=== PATIENT | male | born 2000 | race Caucasian/White ===

== ENCOUNTER 2019-05-19 15:35 | Emergency (ER) | payer OTHER ==
[~2019-05-19] VITALS: Ht 180.3 cm; Wt 82.5 kg
--- NOTE | 2019-05-19 16:46 | REP ---
Clinical: Left Testicular pain. Technique: Genao scale and color Doppler evaluation using linear and curved array transducer with color Doppler evaluation. Findings: The testicles and epididymi are relatively normal in contour, size, echogenicity, vascularity and overall appearance. There is no evidence for intratesticular mass lesion, infectious/inflammatory process, with torsion. No obvious hydroceles or varicoceles are identified. Right testicle measures 4.7 x 2.2 x 3.0 cm. Left testicle measures 4.4 x 2.2 x 3.2 cm. Impression: Normal scrotal ultrasound. No evidence for testicular torsion or orchitis. Electronically Signed by Jeff March MD 05/19/2019 04:38 P
[2019-05-19 18:13] VITALS: BP 136/87
[2019-05-19 19:03] LABS: CHLAMYDIA DNA AMPLIFICATION NEGATIVE (NEGATIVE); GC DNA AMPLIFICATION NEGATIVE (NEGATIVE)
== END 2019-05-19 18:14 | disposition home or self-care (01) ==
LOC: M ED 15:35
DX: N50.812 Left testicular pain (principal); F17.290 Nicotine dependence, other tobacco product, uncomplicated